=== PATIENT | female | born 1955 | race Caucasian/White ===

== ENCOUNTER 2017-10-20 10:31 | Emergency (ER) | payer MEDICAID, OTHER ==
[2017-10-20] MEDS: KETOROLAC 30 MG INJ IM (12:07)
== END 2017-10-20 13:27 | disposition home or self-care (01) ==
LOC: FTE 10:31
DX: S69.92XA Unspecified injury of left wrist, hand and finger(s), initial encounter (principal); M54.9 Dorsalgia, unspecified; K14.6 Glossodynia; X58.XXXA Exposure to other specified factors, initial encounter; Y92.9 Unspecified place or not applicable
CPT/HCPCS: 29130; 73140; 96372; 99284-25